=== PATIENT | male | born 2000 | race African-American/Black ===

== ENCOUNTER 2021-10-03 12:36 | Emergency (ER) | payer SELFPAY ==
[~2021-10-03] VITALS: Ht 167.6 cm; Wt 80.0 kg
[2021-10-03 12:38] VITALS: BP 101/64
== END 2021-10-03 13:39 | disposition left against medical advice (07) ==
LOC: ER 12:45
DX: Z53.21 Procedure and treatment not carried out due to patient leaving prior to being seen by health care provider (principal); F91.8 Other conduct disorders
CPT/HCPCS: 99283

== ENCOUNTER 2022-08-29 04:15 | Emergency (ER) | payer MEDICAID ==
[~2022-08-29] VITALS: Ht 180.3 cm; Wt 73.0 kg
[2022-08-29] MEDS ORDERED: OLANZAPINE 10 MG/VIAL IM ONE (05:45)
[2022-08-29 06:16] LABS: HEMOGLOBIN. 14.4 g/dL (14.0-18.0); MEAN CORPUSCULAR HEMOGLOBIN 30.7 pg (28.0-32.0); MEAN CORPUSCULAR VOLUME 89.4 fL (80.0-94.0); MEAN PLATELET VOLUME 7.8 fl (7.4-10.4); PLATELET 170 x1000/uL (130-400); RED BLOOD CELL COUNT 4.69 mill/uL (4.7-6.1); RED CELL DISTRIBUTION WIDTH 13.3 % (11.6-14.6)
[2022-08-29 06:18] LABS: CHLORIDE 100 mEq/L (98-107)
[2022-08-29 06:37] LABS: ETHANOL BLOOD < 10 mg/dL
[2022-08-29] MEDS ORDERED: OLANZAPINE 10 MG/VIAL IM SCH (07:45)
[2022-08-29 08:09] LABS: PLATELET ESTIMATE NORMAL
[2022-08-29] MEDS ORDERED: POTASSIUM CHLORIDE 20MEQ TABLET SR PO ONE (08:15)
[2022-08-29] MEDS ORDERED: HALOPERIDOL LACTATE 5MG/ML VIAL IM ONE (13:00)
[2022-08-29] MEDS: OLANZAPINE 5MG TABLET ODT PO SCH (21:54)
[2022-08-30 07:39] LABS: CLARITY URINE CLEAR (CLEAR); COLOR URINE YELLOW (YELLOW); KETONES URINE 1+ (NEGATIVE); PROTEIN URINE NEGATIVE (NEGATIVE); SPECIFIC GRAVITY URINE 1.015 (1.005-1.030)
[2022-08-30 07:40] LABS: LEUKOCYTE ESTERASE URINE NEGATIVE (NEGATIVE); NITRITE URINE NEGATIVE (NEGATIVE); OCCULT BLOOD URINE NEGATIVE (NEGATIVE)
[2022-08-30] MEDS: OLANZAPINE 5MG TABLET ODT PO SCH (09:00)
[2022-08-30 11:09] LABS: *AMPHETAMINES SCREEN URINE NEGATIVE (NEGATIVE); *BARBITURATES SCREEN URINE NEGATIVE (NEGATIVE); *BENZODIAZEPINES SCREEN URINE NEGATIVE (NEGATIVE); *COCAINE SCREEN URINE NEGATIVE (NEGATIVE); CANNABINOID URINE SCREEN PRESUMTIVE POSITIVE (NEGATIVE); METHADONE URINE SCREEN NEGATIVE (NEGATIVE); OPIATES URINE SCREEN NEGATIVE (NEGATIVE); PHENCYCLIDINE URINE SCREEN NEGATIVE (NEGATIVE)
[2022-08-30 16:00] VITALS: BP 126/72
== END 2022-08-30 17:00 ==
LOC: ER 04:15
DX: F22 Delusional disorders (principal); R45.850 Homicidal ideations; R45.1 Restlessness and agitation; F20.9 Schizophrenia, unspecified; E87.6 Hypokalemia; F12.90 Cannabis use, unspecified, uncomplicated; Z78.1 Physical restraint status; Z20.822 Contact with and (suspected) exposure to COVID-19; Z75.1 Person awaiting admission to adequate facility elsewhere
CPT/HCPCS: 36415; 80053; 80305; 80307; 80320; 80329; 81003; 85025; 96372; 99285; C9803; J1630; J3490; U0003; U0005; G0480

== ENCOUNTER 2022-09-27 14:51 | Emergency (ER) | payer MEDICAID ==
[~2022-09-27] VITALS: Ht 172.7 cm; Wt 75.0 kg
[2022-09-27 15:03] VITALS: BP 115/56
[2022-09-27] MEDS ORDERED: SODIUM CHLORIDE 0.9% 1,000 ML IV ONE (15:45)
== END 2022-09-27 16:45 | disposition left against medical advice (07) ==
LOC: ER 16:38
DX: R41.82 Altered mental status, unspecified (principal); J45.909 Unspecified asthma, uncomplicated; F20.9 Schizophrenia, unspecified
CPT/HCPCS: 99283; J7030